=== PATIENT | female | born 1985 | race Caucasian/White ===

== ENCOUNTER 2022-07-18 14:39 | Emergency (ER) | payer OTHER, SELFPAY ==
[2022-07-18] VITALS (7 sets, daily range): BP systolic 107–151; BP diastolic 68–87; PULSE 78–87; RESP 20; TEMP 36.8–37.2; O2SAT 95–100; BMI 35.2; BMI 35.3
--- NOTE | 2022-07-18 15:39 | EXP.UTC ---
Discharge Plan Referrals Follow up/Referrals: Provider,Referral, MD [Primary Care Provider] - See instructions Clinical Impressions Clinical Impression: Abdominal pain [facility]charge ED [facility] [place], [place] HPI General Stated complaint: Vomiting, diarrhea, upset stomache Mode of Arrival: Ambulatory Source of Information: Patient Limitations: No Limitations Time Seen by Provider: 07/18/22 15:39 Description of Symptoms (Recalled from Triage Doc. by RN): PATIENT C/O WATERY DIARRHEA, NAUSEA, WEAKNESS, LOSS OF APPETITE AND ABDOMINAL PAIN SINCE WEDNESDAY HEENT Symptoms (Recalled from RN notes): No Resp Symptoms (Recalled from RN notes): No Skin Symptoms (Recalled from RN notes): No MS Symptoms (Recalled from RN notes): No Functional Status (Recalled from RN notes): WNL History of Present Illness Provider Complaint: 37 yr old female presents for rlq pain, n/v/d and upper gastric discomfort Related Data Allergies Allergy/AdvReac Type Severity Reaction Status Date / Time No Known Allergies Allergy Verified 07/18/22 15:30 Worker's Comp Is this a Worker's Comp case?: No [facility] Disclaimer: The information contained in this section may have been updated after the patient was seen, as this information can be updated by other users. Social History , [employer]) Smoking Status: Unknown if ever smoked alcohol intake: never current occupational status: employed Travel in the last 8 weeks: None ROS Obtained: Yes All systems reviewed & no additional complaints except as documented Constitutional Constitutional: Reports system reviewed and no additional complaints, except as documented and Reports as per HPI Eyes Eyes: Reports system reviewed and no additional complaints, except as documented ENT Ears, Nose, Mouth, and Throat: Reports system reviewed and no additional complaints, except as documented Cardiovascular Cardiovascular: Reports system reviewed and no additional complaints, except as documented Respiratory Respiratory: Reports system reviewed and no additional complaints, except as documented Gastrointestinal Gastrointestingal: Reports system reviewed and no additional complaints, except as documented, as per HPI, diarrhea, nausea and vomiting Musculoskeletal Musculoskeletal: Reports system reviewed and no additional complaints, except as documented Integumentary/Breasts Skin/Breast: Reports system reviewed and no additional complaints, except as documented Neurologic Neurologic: Reports system reviewed and no additional complaints, except as documented Endocrine Endocrine: Reports system reviewed and no additional complaints, except as documented Hematologic/Lymphatic Henatologic/Lymphatic: Reports system reviewed and no additional complaints, except as documented Allergic/Immunologic Allergic/Immunologic: Reports system reviewed and no additional complaints, except as documented Physical Exam General General appearance: alert and in no apparent distress Head Head exam: atraumatic and normocephalic Eye Eye exam: Present normal appearance and PERRL ENT ENT exam: Present normal exam, normal oropharynx, mucous membranes moist and TM's normal bilaterally Neck Neck exam: Present full ROM Respiratory Respiratory exam: Present normal lung sounds bilaterally Cardiovascular Cardiovascular exam: Present regular rate and normal rhythm Abdominal Exam Abdominal exam: Present soft and tenderness Abdominal tenderness: Present RLQ Comment: tenderness to rlq Neurological Exam Neurological exam: Present alert and oriented X3 Skin Skin exam: Present warm and intact Medical Decision Making Medical Records Medical records reviewed: Yes I reviewed the patient's medical records. José Antonio Inquiry Pt receiving controlled substance: No Vital Signs: 07/18/22 15:10 Temperature 99.0 F Temperature Source Oral Pulse Rate [Right Brachial] 84 Respiratory Rate 20 Bl
--- NOTE | 2022-07-18 16:41 | CT_ITS ---
PROCEDURE INFORMATION: Exam: CT Abdomen And Pelvis With Contrast Exam date and time: 07/18/2022 5:18 PM Age: 37 years old Clinical indication: Abdominal pain; Additional info: Rlq pain TECHNIQUE: Imaging protocol: Computed tomography of the abdomen and pelvis with contrast. Radiation optimization: All CT scans at this facility use at least one of these dose optimization techniques: automated exposure control; mA and/or kV adjustment per patient size (includes targeted exams where dose is matched to clinical indication); or iterative reconstruction. Contrast material: ISOVUE; Contrast volume: 75 ml; Contrast route: IV; REPORTING DATA: Count of CT and Cardiac NM exams in prior 12 months: This patient has received 0 known CTs and 0 known cardiac nuclear medicine studies in the 12 months prior to the current study. COMPARISON: No relevant prior studies available. FINDINGS: Lungs: Lung bases are clear. Liver: Normal. No mass. Gallbladder and bile ducts: Normal. No calcified stones. No ductal dilation. Pancreas: Normal. No ductal dilation. Spleen: Normal. No splenomegaly. Adrenal glands: Normal. No mass. Kidneys and ureters: Normal. No hydronephrosis. Stomach and bowel: Unremarkable. No obstruction. No mucosal thickening. Appendix: Appendix is normal. No evidence of appendicitis. Intraperitoneal space: Unremarkable. No free air. No significant fluid collection. Vasculature: Unremarkable. No abdominal aortic aneurysm. Lymph nodes: Multiple mildly prominent mesenteric lymph nodes identified in the left mid abdomen into lesser degree the mid abdomen largest measuring 12 mm in short axis. Urinary bladder: Unremarkable as visualized. Reproductive: Unremarkable as visualized. Bones/joints: Unremarkable. No acute fracture. Soft tissues: Unremarkable. IMPRESSION: 1. No acute abnormalities of the abdomen and pelvis. 2. Mild mesenteric lymphadenopathy most pronounced in the left mid abdomen. This is a nonspecific finding that might reflect changes of mesenteric panniculitis or possibly mesenteric adenitis in the proper clinical setting. Other possibilities such as developing tumor such as lymphoma or leukemia thought less likely at this time but can not be entirely excluded and can be correlated clinically. Consider follow-up CT in 3-6 months to ensure stability.
[2022-07-18 16:47] LABS: Microscopic, Urine URINE MICROSCOPIC (MICROSCOPIC)
[2022-07-18 16:51] LABS: Basophils # 0.1 K/mm3 (0-0.2); Basophils % 1.1 % (0.1-2.0); Eosinophils # 0.1 K/mm3 (0.0-0.4); Eosinophils % 1.9 % (0.1-12.0); Hemoglobin 15.1 g/dL (12.2-16.2); Lymphocytes # 1.7 K/mm3 (0.7-4.5); Lymphocytes % 22.5 % (10-50); Mean Corpuscular HGB Conc 32.1 g/dL (31.8-35.4); Mean Corpuscular Hemoglobin 30.3 pg (27.0-31.2); Mean Corpuscular Volume 94.7 fl (81-99); Mean Platelet Volume 7.9 fl (7.4-10.4); Monocytes # 0.4 K/mm3 (0.1-1.0); Monocytes % 5.3 % (1.7-9.3); Neutrophils # 5.1 K/mm3 (1.8-7.8); Neutrophils % 69.1 % (37.0-80.0); Platelet Count 390 K/mm3 (142-424); Red Blood Count 4.96 M/mm3 (4.20-5.40); Red Cell Distribution Width 12.4 % (11.5-17.5); White Blood Count 7.3 K/mm3 (4.8-10.8)
[2022-07-18 16:53] LABS: Chloride 108 mmol/L (98-107); Sodium 139 mmol/L (136-145)
[2022-07-18 16:54] LABS: Potassium 3.9 mmoL/L (3.5-5.1)
[2022-07-18 16:54] LABS: Appearance,Urine SL CLOUDY (Clear); Blood, Urine Negative (Negative); Color,Urine YELLOW (Yellow); Glucose,Urine (UA) Negative (Negative); Ketones,Urine 1+ (Negative); Leukocyte Esterase,Urine Negative (Negative); Nitrate,Urine Negative (Negative); Protein,Urine 2+ (Negative); Specific Gravity, Urine >= 1.030 (1.005-1.030); Urobilinogen,Urine 0.2 EU/dl (0.2)
[2022-07-18 16:56] LABS: Alanine Aminotransferase 63 U/L (12-78); Alkaline Phosphatase 89 U/L (38-126); Anion Gap 15.9 mEq/L (5-15); Aspartate Amino Transferase 47 U/L (14-36); Bilirubin,Total 0.5 mg/dl (0.2-1.3); Blood Urea Nitrogen 18 mg/dl (7-17); Carbon Dioxide 19 mmol/L (22.0-30.0); Creatinine Clearance Estimated 123 mL/min (50-200); Estimated Glomerular Filt Rate 62 ml/min (>60); GFR (African American) 75 ML/MIN (>60); Lipase 225 U/L (23-300)
[2022-07-18 16:57] LABS: Albumin Level 4.9 g/dl (3.5-5.0); Albumin/Globulin Ratio 1.5 (1.1-1.8); Calcium 9.7 mg/dl (8.4-10.2); Globulin 3.2 g/dL (1.3-3.2); Glucose 91 mg/dl (74-100); Total Protein,Serum 8.1 g/dl (6.3-8.2)
[2022-07-18 16:58] LABS: HCG Qualitative, Serum Negative (Negative)
[2022-07-18 17:02] LABS: C-Reactive Protein 3.6 mg/L (0-4)
[2022-07-18 17:18] LABS: Bilirubin,Urine 2+ (Negative); Calcium Oxalate Crystals,Urine 2+ /lpf
--- NOTE | 2022-07-18 17:26 | PC.NURSE ---
pt arrived back to from xray
--- NOTE | 2022-07-18 18:21 | HMH.EDGENADL ---
Discharge Plan Disposition Patient Disposition: Home, Self-Care Condition: Fair Prescriptions Prescriptions: New ondansetron [ondansetron] 4 mg tablet,disintegrating 4 mg PO TIDP PRN (Reason: Nausea) Qty: 10 0RF Referrals Follow up/Referrals: Provider,Referral, MD [Primary Care Provider] - See instructions Activity Restrictions/Add. Instructions Additional Instructions/Restrictions: Recommend following up with your PCP to ensure resolution of symptoms and see if they want to do any further testing from your findings on CT today. Clinical Impressions Clinical Impression: Acute mesenteric adenitis Instructions Patient Instructions: DI for Mesenteric Adenitis-Adult Discharge ED Provider: Kaz Critsina General Adult HPI General Chief complaint: Nausea/Vomiting/Diarrhea Stated complaint: Vomiting, diarrhea, upset stomache Time Seen by Provider: 07/18/22 15:39 Mode of Arrival: Ambulatory Source of Information: Patient Limitations: No Limitations Description of Symptoms (Recalled from ER Triage Doc. by RN): pt to ed from [facility] c/o LQ pain, nausea and diarrhea. pt states she was recently seen for a sinus infection and mild dizziness. History of Present Illness HPI narrative: Patient is a 37-year-old female who presents with concern for abdominal pain, nausea, vomiting. She was sent over from the urgent care due to concerns of substantial abdominal pain. She says that she has been sick recently. She says that she started develop GI symptoms for the last 6 days. She says that other family members have started to have symptoms as well during this time. She says that her abdominal pain is worse in the left lower quadrant but she also complains of some periumbilical pain as well. She says that she has been nauseous and has been vomiting. She has had numerous bouts of diarrhea as well. She denies any fever or chills. Denies any chest pain or shortness of breath. Related Data Previous Rx's Medication Instructions Recorded ondansetron 4 mg disintegrating 4 mg PO TIDP PRN Nausea #10 tabs 07/18/22 tablet Allergies Allergy/AdvReac Type Severity Reaction Status Date / Time No Known Allergies Allergy Verified 07/18/22 15:30 [facility] Disclaimer: The information contained in this section may have been updated after the patient was seen, as this information can be updated by other users. Social History (Updated 07/18/22 @ 16:09 by [facility] [employer]) Smoking Status: Never smoker alcohol intake: never current occupational status: employed Travel in the last 8 weeks: None ROS Obtained: Yes All systems reviewed & no additional complaints except as documented Physical Exam General General appearance: alert and in no apparent distress Head Head exam: atraumatic, normocephalic and normal inspection Eye Eye exam: Present normal appearance and PERRL ENT ENT exam: Present normal exam, mucous membranes moist and normal external ear exam Neck Neck exam: Present normal inspection and trachea midline Chest Chest inspection: Present normal inspection and symmetric chest wall rise Respiratory Respiratory exam: Present normal lung sounds bilaterally; Absent respiratory distress Cardiovascular Cardiovascular exam: Present regular rate and normal rhythm Abdominal Exam Abdominal exam: Present soft and tenderness; Absent distention or guarding Abdominal tenderness: Present RLQ and LLQ Extremities Exam Extremities exam: Present normal inspection; Absent edema Neurological Exam Neurological exam: Present alert and oriented X3 Psychiatric Psychiatric exam: Present normal affect and normal mood Skin Skin exam: Present warm, dry, intact and normal color Medical Decision Making Medical Records Medical records reviewed: Yes I reviewed the patient's medical records. José Antonio Inquiry Pt receiving controlled substance: No Vital Signs: 07/18/22 15:10 07/18/22 16:00 07/18/22 16:23 Temperature
== END 2022-07-18 18:28 | disposition home or self-care (01) ==
LOC: UTC 14:45 → ER 16:00
PROVIDERS: Emergency Provider Student in an Organized Health Care Education/Training Program
DX: R10.9 Unspecified abdominal pain (principal); R11.10 Vomiting, unspecified; R19.7 Diarrhea, unspecified; I88.0 Nonspecific mesenteric lymphadenitis
CPT/HCPCS: 74177; 80053; 81001; 83690; 84703; 85025; 86140; 96360; 96374; 96375; 99284; 99285; J2405; Q9967

== ENCOUNTER 2022-07-27 17:15 | Observation (INO) | payer OTHER, SELFPAY ==
[2022-07-27] VITALS (17 sets, daily range): BP systolic 107–148; BP diastolic 50–81; PULSE 84–110; RESP 8–19; TEMP 36.6–43; O2SAT 94–100; BMI 35.2; BMI 37.0
--- NOTE | 2022-07-27 17:22 | HMH.EDGENADL ---
Discharge Plan Disposition Patient Disposition: Admitted as Observation Prescriptions Prescriptions: No Action omeprazole 40 mg capsule,delayed release(DR/EC) 40 mg PO DAILY Label Comments: TAKE 1 CAPSULE BY MOUTH 1 TIME EACH DAY. DO NOT CRUSH OR CHEW. fluoxetine 20 mg capsule 20 mg PO DAILY Label Comments: TAKE 1 CAPSULE BY MOUTH EVERY DAY Referrals Follow up/Referrals: Marimar Kaur [Primary Care Provider] - See instructions Clinical Impressions Clinical Impression: Acute appendicitis Instructions Patient Instructions: DI for Acute Abdominal Pain Discharge ED Provider: Alejandro Wiggins General Adult HPI General Chief complaint: Abdominal Pain Stated complaint: Sever abdominal pain Time Seen by Provider: 07/27/22 17:22 History of Present Illness HPI narrative: Patient is a 37-year-old female presenting with diffuse abdominal pain and bloating. States that a week ago she had 6 days of nausea vomiting diarrhea and came to the emergency department and was diagnosed with a gastroenteritis where she subsequently improved. She did have a few days of loose stools subsequent to that but yesterday 24 hours ago she started having significant abdominal pain and significant bloating associated with nausea. She states that she felt like if she could have a good bowel movement that she would feel better but she did have a bowel movement without any significant improvement in her symptoms. She has increased urinary frequency but no urgency or dysuria. No vomiting or diarrhea in the last few days. No fevers or chills. She states her primary complaint is lower abdominal tenderness and significant bloating. Related Data Home Medications Medication Instructions Recorded Confirmed fluoxetine 20 mg capsule 20 mg PO DAILY Mood 07/27/22 07/27/22 omeprazole 40 mg capsule,delayed 40 mg PO DAILY Acid reflux 07/27/22 07/27/22 release Allergies Allergy/AdvReac Type Severity Reaction Status Date / Time No Known Allergies Allergy Verified 07/18/22 15:30 [facility] Disclaimer: The information contained in this section may have been updated after the patient was seen, as this information can be updated by other users. Social History Smoking Status: Current every day smoker alcohol intake: never current occupational status: employed Travel in the last 8 weeks: None ROS Obtained: Yes All systems reviewed & no additional complaints except as documented Physical Exam General General appearance: alert and in no apparent distress Respiratory Respiratory exam: Present respiratory distress Cardiovascular Cardiovascular exam: Absent tachycardia Abdominal Exam Abdominal exam: Present soft, distention and tenderness (Lower right and lower left quadrant tenderness palpation no rebound or guarding) Neurological Exam Neurological exam: Present alert and oriented X3 Medical Decision Making José Antonio Inquiry Pt receiving controlled substance: No Vital Signs: 07/27/22 17:16 Temperature 98.5 F Temperature Source Oral Pulse Rate [Left] 88 Respiratory Rate 19 Blood Pressure [Right Arm] 131/81 Blood Pressure Mean [Right Arm] 97 Blood Pressure Source [Right Arm] Automatic Cuff Blood Pressure Position [Right Arm] Sitting 02 Sat by Pulse Oximetry 100 Oxygen Delivery Method Room Air Lab Data Lab results reviewed: Yes I reviewed the patient's lab results. Lab Results 07/27/22 17:23: Urine Color Yellow, Urine Appearance Clear, Urine pH 7.5, Ur Specific [place] 1.010, Urine Protein Negative, Urine Glucose (UA) Negative, Urine Ketones Negative, Urine Blood Negative, Urine Nitrate Negative, Urine Bilirubin Negative, Urine Urobilinogen 0.2, Ur Leukocyte Esterase Negative, Urine RBC None, Urine WBC Occasional, Ur Squamous Epith Cells None, Urine Bacteria None 07/27/22 17:23: Urine HCG, Qual Negative 07/27/22 17:25: WBC 15.5 H, RBC 4.65, Hgb 14.1, H
--- NOTE | 2022-07-27 17:28 | CT_ITS ---
PROCEDURE INFORMATION: Exam: CT Abdomen And Pelvis With Contrast Exam date and time: 07/27/2022 6:08 PM Age: 37 years old Clinical indication: Abdominal pain; Generalized; Additional info: Diffuse abd pain and lower abd tenderness TECHNIQUE: Imaging protocol: Computed tomography of the abdomen and pelvis with contrast. Radiation optimization: All CT scans at this facility use at least one of these dose optimization techniques: automated exposure control; mA and/or kV adjustment per patient size (includes targeted exams where dose is matched to clinical indication); or iterative reconstruction. Contrast material: ISOVUE; Contrast volume: 75 ml; Contrast route: IV; REPORTING DATA: Count of CT and Cardiac NM exams in prior 12 months: This patient has received [address] and 0 known cardiac nuclear medicine studies in the 12 months prior to the current study. COMPARISON: CT ABDOMEN PELVIS W CON 07/18/2022 5:18 PM FINDINGS: Liver: Normal. No mass. Gallbladder and bile ducts: Normal. No calcified stones. No ductal dilation. Pancreas: Normal. No ductal dilation. Spleen: Normal. No splenomegaly. Adrenal glands: Normal. No mass. Kidneys and ureters: Normal. No hydronephrosis. Stomach and bowel: Unremarkable. No obstruction. No mucosal thickening. Appendix: The appendix is enlarged, measuring 12 mm in diameter. There is moderate periappendiceal inflammation. No evidence of the appendiceal rupture or abscess. Intraperitoneal space: Unremarkable. No free air. No significant fluid collection. Vasculature: Unremarkable. No abdominal aortic aneurysm. Lymph nodes: Mild mesenteric lymphadenopathy in the left upper abdomen appears similar to previous. Urinary bladder: Unremarkable as visualized. Reproductive: 1.7 cm peripherally enhancing lesion in the right ovary with mild surrounding free fluid is compatible with the recently ruptured corpus luteum cyst. Pelvic organs are otherwise unremarkable. Bones/joints: Unremarkable. No acute fracture. Soft tissues: Unremarkable. IMPRESSION: Uncomplicated acute appendicitis. Other incidental findings as noted. THIS REPORT CONTAINS FINDINGS THAT MAY BE CRITICAL TO PATIENT CARE. The findings were verbally communicated via telephone conference with Alejandro Wiggins at 6:29 PM EDT on 07/27/2022. The findings were acknowledged and understood.
[2022-07-27 17:35] LABS: Microscopic, Urine URINE MICROSCOPIC (MICROSCOPIC)
[2022-07-27 17:38] LABS: Basophils % 0.3 % (0.1-2.0); Eosinophils # 0.2 K/mm3 (0.0-0.4); Hematocrit 43.8 % (37.0-47.0); Hemoglobin 14.1 g/dL (12.2-16.2); Lymphocytes # 1.3 K/mm3 (0.7-4.5); Lymphocytes % 8.3 % (10-50); Mean Corpuscular HGB Conc 32.3 g/dL (31.8-35.4); Mean Corpuscular Hemoglobin 30.4 pg (27.0-31.2); Mean Corpuscular Volume 94.1 fl (81-99); Mean Platelet Volume 7.4 fl (7.4-10.4); Monocytes # 0.6 K/mm3 (0.1-1.0); Monocytes % 3.9 % (1.7-9.3); Neutrophils # 13.5 K/mm3 (1.8-7.8); Neutrophils % 86.7 % (37.0-80.0); Platelet Count 367 K/mm3 (142-424); Red Blood Count 4.65 M/mm3 (4.20-5.40); Red Cell Distribution Width 12.7 % (11.5-17.5); White Blood Count 15.5 K/mm3 (4.8-10.8)
[2022-07-27 17:43] LABS: MANUAL DIFFERENTIAL MANUAL DIFFERENTIAL (MANUAL DIFF)
[2022-07-27 17:43] LABS: Appearance,Urine CLEAR (Clear); Bilirubin,Urine Negative (Negative); Blood, Urine Negative (Negative); Color,Urine YELLOW (Yellow); Glucose,Urine (UA) Negative (Negative); Ketones,Urine Negative (Negative); Leukocyte Esterase,Urine Negative (Negative); Nitrate,Urine Negative (Negative); PH,Urine 7.5 (5.0-8.5); Protein,Urine Negative (Negative); Urobilinogen,Urine 0.2 EU/dl (0.2)
[2022-07-27 17:47] LABS: Urine Pregnancy, HCG Qual. Negative (Negative)
[2022-07-27 17:48] LABS: Chloride 104 mmol/L (98-107); Potassium 4.7 mmoL/L (3.5-5.1); Sodium 139 mmol/L (136-145)
[2022-07-27 17:50] LABS: Alanine Aminotransferase 101 U/L (12-78); Aspartate Amino Transferase 57 U/L (14-36); Blood Urea Nitrogen 9 mg/dl (7-17); Creatinine Clearance Estimated 176 mL/min (50-200); Estimated Glomerular Filt Rate 94 ml/min (>60); GFR (African American) 113 ML/MIN (>60)
[2022-07-27 17:51] LABS: Albumin Level 4.2 g/dl (3.5-5.0); Albumin/Globulin Ratio 1.4 (1.1-1.8); Alkaline Phosphatase 86 U/L (38-126); Anion Gap 11.7 mEq/L (5-15); Bilirubin,Total 0.3 mg/dl (0.2-1.3); Calcium 9.3 mg/dl (8.4-10.2); Carbon Dioxide 28 mmol/L (22.0-30.0); Globulin 3.1 g/dL (1.3-3.2); Glucose 111 mg/dl (74-100); Lipase 95 U/L (23-300); Total Protein,Serum 7.3 g/dl (6.3-8.2)
[2022-07-27 18:05] LABS: WBC,Urine Occasional #/hpf (0-3)
[2022-07-27 18:06] LABS: Lymphocytes % 9 % (10-50); Monocytes % 4 % (2-9); Neutrophils % 87 % (42-76); Platelet Estimate Normal; RBC Morphology Normal; Total Cells Counted 100
--- NOTE | 2022-07-27 18:24 | PC.NURSE ---
speaking to yvon
--- NOTE | 2022-07-27 18:25 | PC.NURSE ---
paging dr brown at this time
--- NOTE | 2022-07-27 18:31 | PC.NURSE ---
speaking to dr brown
--- NOTE | 2022-07-27 18:33 | PC.NURSE ---
per dr brown, surgery team to be called in. warehouse operations manager notified
--- NOTE | 2022-07-27 18:40 | PC.NURSE ---
183 ER notified house of need for surgery team to be called in 183 surgery team paged [phone] received call back from [facility] 183 received call back from Katelyn RN [phone] received call back from Karo denture laboratory technician
--- NOTE | 2022-07-27 19:20 | EXP.GEN.HP ---
HPI HPI HPI: Patient is a 37-year-old female. She had presented to the emergency department 9 days ago with abdominal pain, nausea, and vomiting. Evaluation in the emergency department at that time was consistent with gastroenteritis with mesenteric adenitis. CT scan imaging revealed a normal appendix. The symptoms had resolved. Over the past 24 hours she developed abdominal pain becoming more localized to the right lower quadrant. She describes significant diffuse bloating with some associated nausea. She presented to the emergency department where she was evaluated. She was found to have leukocytosis. She underwent CT scan which revealed enlarged 12 mm appendix with moderate periappendiceal inflammation with no evidence of any rupture or abscess. Surgical consultation was obtained. [facility] Disclaimer: The information contained in this section may have been updated after the patient was seen, as this information can be updated by other users. Social History Smoking Status: Current every day smoker alcohol intake: never current occupational status: employed Travel in the last 8 weeks: None Meds Home Medications and Allergies Home Medications Medication Instructions Recorded Confirmed Type fluoxetine 20 mg capsule 20 mg PO DAILY Mood 07/27/22 07/27/22 History omeprazole 40 mg capsule,delayed 40 mg PO DAILY Acid reflux 07/27/22 07/27/22 History release New Prescriptions to Start Prescriptions: Allergies Allergy/AdvReac Type Severity Reaction Status Date / Time No Known Allergies Allergy Verified 07/18/22 15:30 Exam Data for Last 24 hours Vital signs and Labs for Last 24 Hours: Temp Pulse Resp BP Pulse Ox 98.5 F 86 19 119/50 L 98 07/27/22 17:16 07/27/22 18:30 07/27/22 17:16 07/27/22 18:30 07/27/22 18:30 Laboratory Results - last 24 hr 07/27/22 17:23: Urine Color Yellow, Urine Appearance Clear, Urine pH 7.5, Ur Specific [place] 1.010, Urine Protein Negative, Urine Glucose (UA) Negative, Urine Ketones Negative, Urine Blood Negative, Urine Nitrate Negative, Urine Bilirubin Negative, Urine Urobilinogen 0.2, Ur Leukocyte Esterase Negative, Urine RBC None, Urine WBC Occasional, Ur Squamous Epith Cells None, Urine Bacteria None 07/27/22 17:23: Urine HCG, Qual Negative 07/27/22 17:25: WBC 15.5 H, RBC 4.65, Hgb 14.1, Hct 43.8, MCV 94.1, MCH 30.4, MCHC 32.3, RDW 12.7, Plt Count 367, MPV 7.4, Neut % (Auto) 86.7 H, Lymph % (Auto) 8.3 L, [place] % (Auto) 3.9, Eos % (Auto) 1.0, Baso % (Auto) 0.3, Neut # (Auto) 13.5 H, Lymph # (Auto) 1.3, [place] # (Auto) 0.6, Eos # (Auto) 0.2, Baso # (Auto) 0.0, Total Counted 100, Neutrophils % (Manual) 87 H, Lymphocytes % (Manual) 9 L, Monocytes % (Manual) 4, Platelet Estimate Normal, RBC Morphology Normal 07/27/22 17:25: Sodium 139, Potassium 4.7, Chloride 104, Carbon Dioxide 28, Anion Gap 11.7, BUN 9, Creatinine 0.70, Estimated Creat Clear 176, Estimated GFR 94, Est GFR ( Amer) 113, Glucose 111 H, Calcium 9.3, Total Bilirubin 0.3, AST 57 H, ALT 101 H, Alkaline Phosphatase 86, Total Protein 7.3, Albumin 4.2, Globulin 3.1, Albumin/Globulin Ratio 1.4, Lipase 95 I & O for Last 24 hours: Intake & Output 07/25/22 07/26/22 07/27/22 07/28/22 11:59 11:59 11:59 11:59 Weight 225 lb Constitutional Constitutional: no acute distress Comments: Uncomfortable *Routine HEENT Exam Head: Present normocephalic Eye: Present EOMI ENT: Present mucous membranes moist *Routine Respiratory Exam Respiratory: Present CTA bilaterally *Routine Cardiovascular Exam Cardiovascular: Present RRR *Routine Abdominal Exam Abdominal: Present soft Comments: Diffusely tender with some guarding in the right lower quadrant *Routine Rectal Exam Rectal:: deferred *Routine Genitalia Exam Genitalia:: deferred Results Results Lab Results Last 24 Hours:: Laboratory Results - last 24 hr 07/27/22 17:23: Urine Color Yellow,
--- NOTE | 2022-07-27 20:22 | P.PN_ITS ---
[facility] Disclaimer: The information contained in this section may have been updated after the patient was seen, as this information can be updated by other users. Social History Smoking Status: Current every day smoker alcohol intake: never substance use type: denies use current occupational status: employed Travel in the last 8 weeks: None [facility] Anesthesia Checklist Patient Identification Patient Identification: Arm Band and Verbal (Name & ) Structural Data Admitted From: Inpatient Planned Operative Procedure/s: Appendectomy Consent for Planned Operative Procedure(s) Verified: Yes Verified Documents: Surgical Consent NPO Status Verified Time NPO: 00:00 Chart Verification Results Verified: HCG Airway Assessment C-Spine Mobility Assessed: Yes TMJ Mobility Assessed: Yes Dentition: Good Dentition Neurological Assessment Level of Consciousness: Awake, Alert and Appropriate Anesthesia Plan Anesthesia Risk discussed: Yes Anesthesia Plan: Not verified due to Patient Condition ASA Class: II Anesthesia Type: General
--- NOTE | 2022-07-27 20:42 | P.OP_ITS ---
Date of procedure: 07/27/22 Pre-op Diagnosis:: Acute appendicitis Post-op Diagnosis:: Same Procedure performed:: Laparoscopic appendectomy Surgeon:: Dallas Carlson MD INSPECTOR BARREL:: Harvey Farr Anesthesia: CURTIS Estimated blood loss (mL): 10 Clinical Note:: Patient is a 37-year-old female.? She had presented to the emergency department 9 days ago with abdominal pain, nausea, and vomiting.? Evaluation in the emergency department at that time was consistent with gastroenteritis with mesenteric adenitis.? CT scan imaging revealed a normal appendix.? The symptoms had resolved.? Over the past 24 hours she developed abdominal pain becoming more localized to the right lower quadrant.? She describes significant diffuse bloating with some associated nausea.? She presented to the emergency department where she was evaluated.? She was found to have leukocytosis.? She underwent CT scan which revealed enlarged 12 mm appendix with moderate periappendiceal inflammation with no evidence of any rupture or abscess.? Surgical consultation was obtained. Patient was seen and examined in the emergency department. She had clinical findings consistent with possible appreciable appendicitis. Arrangements were made for appendectomy. Operative findings:: She did have some cloudy but nonpurulent fluid in the abdomen. She had a significantly inflamed suppurative appendicitis without perforation. There was fibrinous purulent exudate and it was markedly thickened. Operative note:: Consent was obtained and patient was taken the operating room. She was given preoperative intravenous antibiotics. In the operating room she was placed in a supine position. General anesthesia was induced via endotracheal tube. Giang catheter was placed. Abdomen was prepped and draped in the standard surgical fashion. Subumbilical skin incision was made and while performing abdominal wall lift Veress needle was inserted. CO2 pneumoperitoneum was achieved to 15 mmHg. 12 mm optical trocar was inserted at the umbilicus. She did have some adhesions in her pelvis from previous . There was cloudy fluid in the right lower quadrant and pelvis. 5 mm trocar was inserted in the left lower abdomen. 5 mm trocar was inserted in the right upper abdomen. 10 mm laparoscope was placed with the 5 mm angled laparoscope. Cecum was identified. Base of the appendix was identified. The appendix was grasped near its base. It was adherent into the pelvis. Ultimately the appendix was delivered anteriorly as there were acute inflammatory adhesions of the appendix to the surrounding viscera and fibrinopurulent exudate. The mesoappendix was markedly edematous. Mesoappendix was carefully divided with ALEXA ultrasonic harmonic kenneth with care taken to coagulate the appendiceal artery in the process. Dissection was carried down to the appendiceal base which was relatively uninflamed. Appendix was divided at its base with an endoscopic ANABEL linear cutting stapling device. Appendix was placed within an Endo Catch retrieval device and removed from the peritoneal cavity via the umbilical trocar site which required some extension of the fascial incision for delivery. Limited irr igation was then performed. Appendiceal stump staple line was inspected for hemostasis and integrity which was assured. Trocars were then removed as CO2 pneumoperitoneum was evacuated. Fascia at the umbilicus was closed with a couple of interrupted 0 Vicryl sutures. Local anesthetic was infiltrated. Skin incisions were closed with 4-0 Monocryl in subcuticular fashion. Dermabond and clean dry sterile dressings were applied. Condition: stable Disposition: PACU Complications:: None immediately apparent
--- NOTE | 2022-07-27 20:55 | EXP.ANES.I ---
[facility] Anesthesia Record Part I Anesthesia Record I Intake, IV Amount: 1,100 Estimated blood loss (mL): 10 Urine output (mL): 100 Blood Pressure: 129/77 SaO2: 95 Pulse Rate: 90 Respiratory Rate: 13 Temperature: 98.1 F Patient is:: Drowsy Stable to PACU at:: 20:52
--- NOTE | 2022-07-27 21:32 | SUR.PHASEI ---
2119- Report called to Terrence VIVEROS 2122- Patient transfered to Med/Surg room 212 in stable condition. Left in the care of Terrence VIVEROS. Dressings clean, dry and intact. All vital signs stable.
--- NOTE | 2022-07-27 21:41 | PC.NURSE ---
PT ARRIVED TO FLOOR FROM OR AT 21:25
[2022-07-28 00:30] VITALS: BP 124/72; PULSE 88; RESP 16; TEMP 37; O2SAT 95
[2022-07-28 01:30] VITALS: BP 121/58; PULSE 94; RESP 16; TEMP 36.9; O2SAT 93
[2022-07-28 04:00] VITALS: BP 120/57; PULSE 91; RESP 18; TEMP 37.1; O2SAT 95; BMI 37.0
--- NOTE | 2022-07-28 05:26 | PC.NURSE ---
Patient admitted to floor following emergent laparascopic appenectomy. Patient is alert and oriented, c/o pain in abdomen 4/10 and itching; medicated for pain throughout the night per MAR; prn order for benadryl obtained from attending MD. Patient with 3 lap sites to abdomen, dressing CDI. Patient oriented to care team, unit policies and call light system. PIV R AC, infusing continous LR at 125mL per orders. Patient to continue Unasyn antibiotic. Up with SBA to bathroom, patient has voided without issue following removal of indwelling catheter in PACU. at bedside.
[2022-07-28 06:24] LABS: Basophils % 0.1 % (0.1-2.0); Eosinophils % 0.1 % (0.1-12.0); Hematocrit 39.3 % (37.0-47.0); Lymphocytes # 0.4 K/mm3 (0.7-4.5); Lymphocytes % 3.2 % (10-50); Mean Corpuscular HGB Conc 31.5 g/dL (31.8-35.4); Mean Corpuscular Hemoglobin 29.7 pg (27.0-31.2); Mean Corpuscular Volume 94.3 fl (81-99); Mean Platelet Volume 7.6 fl (7.4-10.4); Monocytes # 0.3 K/mm3 (0.1-1.0); Monocytes % 2.3 % (1.7-9.3); Neutrophils # 11.7 K/mm3 (1.8-7.8); Neutrophils % 94.3 % (37.0-80.0); Platelet Count 295 K/mm3 (142-424); Red Blood Count 4.16 M/mm3 (4.20-5.40); Red Cell Distribution Width 12.7 % (11.5-17.5); White Blood Count 12.4 K/mm3 (4.8-10.8)
[2022-07-28 06:31] LABS: MANUAL DIFFERENTIAL MANUAL DIFFERENTIAL (MANUAL DIFF)
[2022-07-28 06:32] LABS: Hemoglobin 12.3 g/dL (12.2-16.2)
--- NOTE | 2022-07-28 07:26 | EXP.DC.SUM ---
General Admission date:: 07/27/22 Discharge date: 07/28/22 HPI HPI HPI: Patient is a 37-year-old female. She had presented to the emergency department 9 days ago with abdominal pain, nausea, and vomiting. Evaluation in the emergency department at that time was consistent with gastroenteritis with mesenteric adenitis. CT scan imaging revealed a normal appendix. The symptoms had resolved. Over the past 24 hours she developed abdominal pain becoming more localized to the right lower quadrant. She describes significant diffuse bloating with some associated nausea. She presented to the emergency department where she was evaluated. She was found to have leukocytosis. She underwent CT scan which revealed enlarged 12 mm appendix with moderate periappendiceal inflammation with no evidence of any rupture or abscess. Surgical consultation was obtained. Hospital Course Hospital Course Hospital Course: Patient was seen and examined in the emergency department. She was taken to the operating room at which time she underwent laparoscopic appendectomy. She was found to have an acute suppurative but nonperforated appendicitis. The please see operative dictation for complete details. Due to the degree of her appendicitis she was admitted overnight for postoperative convalescence and continuation of postoperative antibiotics. She did well overnight. The following morning she was complaining of some right shoulder discomfort likely from gas. She felt much better. She tolerated full liquid diet without difficulty. White blood cell count had improved to 12,000. Arrangements were made for discharge home with several days of postoperative antibiotics. Exam Data for Last 24 hours Vital signs and Labs for Last 24 Hours: Temp Pulse Resp BP Pulse Ox 98.7 F 91 H 18 120/57 L 95 07/28/22 04:00 07/28/22 04:00 07/28/22 04:00 07/28/22 04:00 07/28/22 04:00 Laboratory Results - last 24 hr 07/27/22 17:23: Urine Color Yellow, Urine Appearance Clear, Urine pH 7.5, Ur Specific [place] 1.010, Urine Protein Negative, Urine Glucose (UA) Negative, Urine Ketones Negative, Urine Blood Negative, Urine Nitrate Negative, Urine Bilirubin Negative, Urine Urobilinogen 0.2, Ur Leukocyte Esterase Negative, Urine RBC None, Urine WBC Occasional, Ur Squamous Epith Cells None, Urine Bacteria None 07/27/22 17:23: Urine HCG, Qual Negative 07/27/22 17:25: WBC 15.5 H, RBC 4.65, Hgb 14.1, Hct 43.8, MCV 94.1, MCH 30.4, MCHC 32.3, RDW 12.7, Plt Count 367, MPV 7.4, Neut % (Auto) 86.7 H, Lymph % (Auto) 8.3 L, Sunflower % (Auto) 3.9, Eos % (Auto) 1.0, Baso % (Auto) 0.3, Neut # (Auto) 13.5 H, Lymph # (Auto) 1.3, Sunflower # (Auto) 0.6, Eos # (Auto) 0.2, Baso # (Auto) 0.0, Total Counted 100, Neutrophils % (Manual) 87 H, Lymphocytes % (Manual) 9 L, Monocytes % (Manual) 4, Platelet Estimate Normal, RBC Morphology Normal 07/27/22 17:25: Sodium 139, Potassium 4.7, Chloride 104, Carbon Dioxide 28, Anion Gap 11.7, BUN 9, Creatinine 0.70, Estimated Creat Clear 176, Estimated GFR 94, Est GFR ( Amer) 113, Glucose 111 H, Calcium 9.3, Total Bilirubin 0.3, AST 57 H, ALT 101 H, Alkaline Phosphatase 86, Total Protein 7.3, Albumin 4.2, Globulin 3.1, Albumin/Globulin Ratio 1.4, Lipase 95 07/28/22 05:50: WBC 12.4 H, RBC 4.16 L, Hgb 12.3 D, Hct 39.3, MCV 94.3, MCH 29.7, MCHC 31.5 L, RDW 12.7, Plt Count 295, MPV 7.6, Neut % (Auto) 94.3 H, Lymph % (Auto) 3.2 L, Sunflower % (Auto) 2.3, Eos % (Auto) 0.1, Baso % (Auto) 0.1, Neut # (Auto) 11.7 H, Lymph # (Auto) 0.4 L, Sunflower # (Auto) 0.3, Eos # (Auto) 0.0, Baso # (Auto) 0.0 I & O for Last 24 hours: Intake & Output 07/25/22 07/26/22 07/27/22 07/28/22 11:59 11:59 11:59 11:59 Intake Total 3110 / 3110 Output Total 1100 / 1100 Balance 2009 Weight 236 lb 5.016 oz *Routine Abdominal Exam Abdominal: Present soft Results Data Completed and Pending Labs on day of discharge: Labs from last 24 hours 07/28/22 07/27/22 07/27/22 05:50 17:25
[2022-07-28 07:34] VITALS: BP 148/75; TEMP 36.6
--- NOTE | 2022-07-28 07:34 | EXP.ANES.II ---
[facility] Anesthesia Record Part II Anesthesia Record Part II Discharge Time: 21:22 Destination: Second Floor PACU nurse assessment reviewed?: Yes Patient Condition:: Good Anesthesia Complications:: None Swallowing reflex intact?: Yes Cyanosis?: No Blood Pressure: 148/75 Pulse Rate: 102 Temperature: 98 F Mental Status: Alert & Oriented Pain level:: 3 Nausea and/or vomitting:: None Intake, IV Amount: 0
[2022-07-28 07:35] VITALS: PULSE 102
[2022-07-28 07:42] LABS: Lymphocytes % 4 % (10-50); Monocytes % 2 % (2-9); Neutrophils % 94 % (42-76); Platelet Estimate Normal; RBC Morphology Normal; Total Cells Counted 100
[2022-07-28 08:00] VITALS: BP 128/72; PULSE 100; RESP 19; TEMP 36.6; O2SAT 98
--- NOTE | 2022-07-28 08:40 | HMH.PHAINT1 ---
Pharmacy Intervention Comments: Counseled patient on new medication (hydrocodone/acetaminophen 5/325mg) to START on discharge. Patient expressed understanding of medication indication, dose, route, frequency, and potential side effects.
[2022-07-28 09:51] LABS: Microscopic,Cath URINE MICROSCOPIC (MICROSCOPIC)
[2022-07-28 09:53] LABS: Appearance,Urine/Cath CLEAR (Clear); Bilirubin,Cath Negative (Negative); Blood, Urine/Cath Negative (Negative); Color,Urine/Cath YELLOW (Yellow); Glucose,Urine/Cath (UA) Negative (Negative); Ketones,Urine/Cath Negative (Negative); Leukocyte Esterase,Cath Negative (Negative); Nitrate,Cath Negative (Negative); Protein,Urine/Cath Negative (Negative); Urobilinogen,Cath 0.2 EU/dl (0.2)
[2022-07-28 11:08] LABS: Squamous Epithelial Ur./Cath Occasional #/hpf (0-5)
--- NOTE | 2022-07-29 13:40 | CARE MANAGER ---
Spoke with patient for post-discharge phone interview, no issues noted.
== END 2022-07-28 09:10 | disposition home or self-care (01) ==
LOC: ER 18:36 → SDC 19:44 → 2ND 21:28
PROVIDERS: Admitting Provider Surgery; Emergency Provider Student in an Organized Health Care Education/Training Program; PCP Nurse Practitioner Family; Visit Provider Surgery
PROC: 0DTJ4ZZ Resection of Appendix, Percutaneous Endoscopic Approach (ICD-10-PCS; CPT 44970; principal; 2022-07-27 19:00)
DX: K35.80 Unspecified acute appendicitis (principal); F17.210 Nicotine dependence, cigarettes, uncomplicated; Z86.16 Personal history of COVID-19
CPT/HCPCS: 44970; 36415; 74177; 80053; 81001; 81025; 83690; 85007; 85025; 99285; G0378; J2405; Q9967

== ENCOUNTER → 2022-08-13 09:44 | Outpatient (CLI) | payer OTHER, SELFPAY ==
[2022-08-13 10:00] LABS: Adenovirus F 40/41, stool Not Detected (NotDetected); Astrovirus Not Detected (NotDetected); Campylobacter Not Detected (NotDetected); Clostridium Difficile A/B, PCR Not Detected (NotDetected); Cryptosporidium Not Detected (NotDetected); Cyclospora Cayetanesis Not Detected (NotDetected); Entamoeba histolytica Not Detected (NotDetected); Enteropathogenic E coli Not Detected (NotDetected); Enterotoxigenic E coli Not Detected (NotDetected); Giardia lamblia Not Detected (NotDetected); Norovirus Not Detected (NotDetected); Plesimonas Shigalloides, PCR Not Detected (NotDetected); Rotavirus A Not Detected (NotDetected); Salmonella, PCR Not Detected (NotDetected); Sapovirus Not Detected (NotDetected); Shiga-like toxin E coli Not Detected (NotDetected); Shigella Enterovasive E coli Not Detected (NotDetected); Vibrio Cholerae Not Detected (NotDetected); Vibrio, PCR Not Detected (NotDetected); Yersinia Entercolitica, PCR Not Detected (NotDetected)
[2022-08-13 15:44] LABS: Enteroaggregative E coli Detected (NotDetected)
== END ==
PROVIDERS: PCP Nurse Practitioner Family; Visit Provider Surgery
DX: R19.7 Diarrhea, unspecified (principal); A04.0 Enteropathogenic Escherichia coli infection
CPT/HCPCS: 87506